=== PATIENT | male | born 2000 | race Caucasian/White ===

== ENCOUNTER 2019-03-15 20:32 | Emergency (ER) | payer MEDICAID ==
[~2019-03-15] VITALS: Ht 193 cm; Wt 129.7 kg
[2019-03-15 21:10] VITALS: BP 159/101; Ht 193 cm; Wt 129.7 kg
== END 2019-03-15 22:56 | disposition home or self-care (01) ==
LOC: ED 20:32
DX: M54.42 Lumbago with sciatica, left side (principal)
CPT/HCPCS: J1885